=== PATIENT | male | born 1940 | race Caucasian/White ===

== ENCOUNTER 2022-01-03 10:14 | Emergency (ER) | payer MEDICARE, MEDICAID ==
[~2022-01-03] VITALS: Ht 182.9 cm; Wt 127.0 kg
[~2022-01-03 10:14] MED LIST: ACET325 PO; ASPI81CH PO; ASPI81EC MT; ATEN25 MT; ATEN25 PO; CEFP200 PO; IBUP600 PO; LEVSOD150 PO; LEVSOD50 MT; LISI5 MT; LISI5 PO; MOTRIN PO; OXYACE5T PO; OXYC5 PO; Synthroid/Lev0.15 MG PO
[2022-01-03 11:04] LABS: BASOPHILS ABSOLUTE AUTO 0.09 K/mm3 (0.00-0.23); BASOPHILS PERCENT AUTO 1 % (0-2); EOSINOPHILS ABSOLUTE AUTO 0.51 K/mm3 (0.00-0.68); EOSINOPHILS PERCENT AUTO 5 % (0-6); Hematocrit 45.1 % (37.0-53.0); Hemoglobin 15.7 g/dL (13.5-17.5); IMMATURE GRAN ABSOLUTE AUTO 0.04 K/mm3 (0.00-0.10); IMMATURE GRAN PERCENT AUTO 0 % (0-1); LYMPHOCYTES ABSOLUTE AUTO 1.97 K/mm3 (0.84-5.20); LYMPHOCYTES PERCENT AUTO 20 % (21-46); MONOCYTES ABSOLUTE AUTO 0.47 K/mm3 (0.16-1.47); MONOCYTES PERCENT AUTO 5 % (4-13); Mean Corpuscular HGB 33.1 pg (26.0-34.0); Mean Corpuscular HGB Conc 34.8 g/dL (31.5-36.5); Mean Corpuscular Volume 95 fL (80-100); Mean Platelet Volume 10.9 fL (9.1-12.4); NEUTROPHILS ABSOLUTE AUTO 6.71 K/mm3 (1.96-9.15); NEUTROPHILS PERCENT AUTO 69 % (41-73); Platelet Count 255 K/mm3 (150-400); RDW Coefficient Variation 15.3 % (11.7-14.2); RDW Standard Deviation 53.6 fL (35.1-46.3); Red Blood Cell Count 4.74 M/mm3 (4.30-5.90); White Blood Cell Count 9.79 K/mm3 (4.00-11.30)
[2022-01-03 11:26] LABS: Source, Urine Straight Cath
[2022-01-03 11:30] LABS: Blood, Urine Neg (Neg); Glucose Qualitative, Urine Neg (Neg); Ketones, Urine 2+ (Neg); Leukocyte Esterase, Urine Neg (Neg); Nitrite, Urine Neg (Neg); Protein, Urine 2+ (Neg); Specific Gravity, Urine 1.015 (1.003-1.022); Urobilinogen, Urine 3+ (Normal)
[2022-01-03 11:33] LABS: Alanine Aminotransfer (ALT/SGP 71 U/L (12-78); Albumin, Blood 3.5 g/dL (3.4-5.0); Albumin/Globulin Ratio 0.7 (0.8-1.8); Alk Phos 78 U/L (50-136); Anion Gap 8 mmol/L (6-16); Aspartate Aminotrans (AST/SGOT 121 U/L (12-37); Bilirubin, Total 0.9 mg/dL (0.1-1.0); Blood Urea Nitrogen 13 mg/dL (8-24); Bun/Creatinine Ratio 14.4 (12.0-20.0); CO2, Blood 30 mmol/L (21-32); Chloride, Blood 99 mmol/L (98-108); Globulin, Blood 4.8 g/dL (2.2-4.0); Glomerular Filtration Rate >60 (60-); Glucose, Blood 172 mg/dL (70-99); Magnesium, Blood 1.6 mg/dL (1.6-2.4); Potassium, Blood 4.3 mmol/L (3.5-5.5); Sodium, Blood 137 mmol/L (136-145); Total Protein, Blood 8.3 g/dL (6.4-8.2)
[2022-01-03] MEDS ORDERED: TAMS.4ER PO (11:35)
[2022-01-03 11:37] LABS: Appearance, Urine Hazy (Clear); Color, Urine Pale Yellow (P-Yellow)
[2022-01-03 11:38] LABS: Bacteria Few /hpf; Bilirubin, Urine 1+ (Neg); Mucus Heavy (0-Heavy); Red Blood Cells, Urine 0-2 /hpf (0-2); Squamous Epithelial Cells Rare /hpf (Few); White Blood Cells, Urine 0-2 /hpf (0-5)
[2022-01-03 11:39] LABS: Yeast/Fungi Urine Rare /hpf
[2022-01-03 12:09] LABS: Influenza A, PCR NEGATIVE (NEGATIVE); Influenza B, PCR NEGATIVE (NEGATIVE); Resp Syncytial Virus, PCR NEGATIVE (NEGATIVE); SARS-Cov-2 (COVID-19) PCR, MMC NEGATIVE (NEGATIVE)
== END 2022-01-03 17:27 | disposition home or self-care (01) ==
LOC: ER 10:14
PROVIDERS: Student in an Organized Health Care Education/Training Program
DX: M17.0 Bilateral primary osteoarthritis of knee (principal); W17.89XA Other fall from one level to another, initial encounter; Z88.8 Allergy status to other drugs, medicaments and biological substances; Z79.899 Other long term (current) drug therapy; Z79.82 Long term (current) use of aspirin; E03.9 Hypothyroidism, unspecified; E11.9 Type 2 diabetes mellitus without complications; I10 Essential (primary) hypertension
CPT/HCPCS: 0241U; 36415; 70450; 80053; 81001; 83735; 85025; 87086; 87210; 93005; 93010; 96365; 97116; 97162; 97166; 97530; 99285-25; J3475

== ENCOUNTER 2022-01-09 11:53 | Inpatient (IN) | payer OTHER ==
[~2022-01-09] VITALS: Ht 180.3 cm; Wt 109.5 kg
[~2022-01-09 11:53] MED LIST changes: +Acetaminophen650 M1 PO; +IBU600 M1 PO; -MOTRIN PO; +TAMS.4ER PO
[2022-01-09 12:53] LABS: BASOPHILS ABSOLUTE AUTO 0.08 K/mm3 (0.00-0.23); BASOPHILS PERCENT AUTO 1 % (0-2); EOSINOPHILS ABSOLUTE AUTO 0.76 K/mm3 (0.00-0.68); EOSINOPHILS PERCENT AUTO 7 % (0-6); Hematocrit 38.5 % (37.0-53.0); Hemoglobin 13.6 g/dL (13.5-17.5); IMMATURE GRAN ABSOLUTE AUTO 0.04 K/mm3 (0.00-0.10); IMMATURE GRAN PERCENT AUTO 0 % (0-1); LYMPHOCYTES ABSOLUTE AUTO 2.03 K/mm3 (0.84-5.20); LYMPHOCYTES PERCENT AUTO 20 % (21-46); MONOCYTES PERCENT AUTO 6 % (4-13); Mean Corpuscular HGB 33.2 pg (26.0-34.0); Mean Corpuscular HGB Conc 35.3 g/dL (31.5-36.5); Mean Corpuscular Volume 94 fL (80-100); Mean Platelet Volume 10.9 fL (9.1-12.4); NEUTROPHILS ABSOLUTE AUTO 6.83 K/mm3 (1.96-9.15); NEUTROPHILS PERCENT AUTO 66 % (41-73); Platelet Count 279 K/mm3 (150-400); RDW Coefficient Variation 14.6 % (11.7-14.2); RDW Standard Deviation 50.4 fL (35.1-46.3); White Blood Cell Count 10.34 K/mm3 (4.00-11.30)
[2022-01-09 13:59] LABS: Alanine Aminotransfer (ALT/SGP 132 U/L (12-78); Albumin, Blood 3.5 g/dL (3.4-5.0); Albumin/Globulin Ratio 0.7 (0.8-1.8); Alk Phos 98 U/L (50-136); Anion Gap 8 mmol/L (6-16); Aspartate Aminotrans (AST/SGOT 293 U/L (12-37); Bilirubin, Total 0.4 mg/dL (0.1-1.0); Blood Urea Nitrogen 20 mg/dL (8-24); Bun/Creatinine Ratio 23.4 (12.0-20.0); CO2, Blood 30 mmol/L (21-32); Calcium, Blood 9.9 mg/dL (8.5-10.1); Chloride, Blood 100 mmol/L (98-108); Creatinine, Blood 0.85 mg/dL (0.60-1.20); Globulin, Blood 4.7 g/dL (2.2-4.0); Glomerular Filtration Rate >60 (60-); Glucose, Blood 202 mg/dL (70-99); Potassium, Blood 3.4 mmol/L (3.5-5.5); Sodium, Blood 138 mmol/L (136-145); Total Protein, Blood 8.2 g/dL (6.4-8.2)
[2022-01-09 14:46] LABS: Source, Urine Straight Cath
[2022-01-09 14:59] LABS: Appearance, Urine Clear (Clear); Bilirubin, Urine Neg (Neg); Blood, Urine 4+ (Neg); Color, Urine Amber (P-Yellow); Glucose Qualitative, Urine Neg (Neg); Ketones, Urine Neg (Neg); Leukocyte Esterase, Urine Neg (Neg); Nitrite, Urine Neg (Neg); Protein, Urine 3+ (Neg); Urobilinogen, Urine 1+ (Normal)
[2022-01-09 15:29] LABS: U Amphetamine Screen Not Detected; U Barbituate Screen Not Detected; U Benzodiazapine Screen Not Detected; U Buprenorphine Screen Not Detected; U Cannabinoids Screen Not Detected; U Cocaine Screen Not Detected; U Methadone Screen Not Detected; U Methamphetamine Screen Not Detected; U Opiates Screen Not Detected; U Oxycodone Screen Not Detected; U Phencyclidine Screen Not Detected; U Propoxyphene Screen Not Detected
[2022-01-09 16:03] LABS: Red Blood Cells, Urine 0-2 /hpf (0-2)
[2022-01-09 16:04] LABS: Bacteria Few /hpf; Mucus Light (0-Heavy); Squamous Epithelial Cells Rare /hpf (Few)
--- NOTE | 2022-01-09 19:14 | NUR ---
REPORT RECEIVED FROM HARSHA PACKER FROM ER. PT ADMITTED TO ROOM 339. PT TX TO BED VIA SLIDE WITH 3 ASSIST. PT ALERT AT TIME OF ARRIVAL. ON 2 LPM VIA NC. VSWNL. PT REPORTED PAIN TO GROIN AREA WHEN COMPLETING FLOR CARE. PT A/O X 4 ON BEDREST AT THIS TIME. FLOR AREA IS VERY EXCORIATED LIKELY FROM INCONTINENCE AND INABILITY TO CLEAN SELF. CLEANSED SKIN AND APPLIED BARRIER CREAM. 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 BED IN LOW POSITION AND BED ALARM ON.
[2022-01-10 05:23] LABS: BASOPHILS ABSOLUTE AUTO 0.08 K/mm3 (0.00-0.23); BASOPHILS PERCENT AUTO 1 % (0-2); EOSINOPHILS ABSOLUTE AUTO 0.95 K/mm3 (0.00-0.68); EOSINOPHILS PERCENT AUTO 11 % (0-6); Hematocrit 37.5 % (37.0-53.0); Hemoglobin 12.7 g/dL (13.5-17.5); IMMATURE GRAN ABSOLUTE AUTO 0.08 K/mm3 (0.00-0.10); IMMATURE GRAN PERCENT AUTO 1 % (0-1); LYMPHOCYTES ABSOLUTE AUTO 1.95 K/mm3 (0.84-5.20); LYMPHOCYTES PERCENT AUTO 22 % (21-46); MONOCYTES ABSOLUTE AUTO 0.54 K/mm3 (0.16-1.47); MONOCYTES PERCENT AUTO 6 % (4-13); Mean Corpuscular HGB 33.2 pg (26.0-34.0); Mean Corpuscular HGB Conc 33.9 g/dL (31.5-36.5); Mean Corpuscular Volume 98 fL (80-100); Mean Platelet Volume 10.8 fL (9.1-12.4); NEUTROPHILS PERCENT AUTO 60 % (41-73); Platelet Count 238 K/mm3 (150-400); RDW Coefficient Variation 15.3 % (11.7-14.2); RDW Standard Deviation 55.1 fL (35.1-46.3); Red Blood Cell Count 3.82 M/mm3 (4.30-5.90)
[2022-01-10 05:55] LABS: Anion Gap 5 mmol/L (6-16); Blood Urea Nitrogen 16 mg/dL (8-24); Bun/Creatinine Ratio 19.2 (12.0-20.0); CO2, Blood 30 mmol/L (21-32); Calcium, Blood 8.7 mg/dL (8.5-10.1); Chloride, Blood 108 mmol/L (98-108); Creatinine, Blood 0.83 mg/dL (0.60-1.20); Glomerular Filtration Rate >60 (60-); Glucose, Blood 179 mg/dL (70-99); Potassium, Blood 3.3 mmol/L (3.5-5.5); Sodium, Blood 143 mmol/L (136-145)
--- NOTE | 2022-01-10 06:12 | NUR ---
SHIFT SUMMARY ADMITTED FOR HYPOTHYROIDISM. AOX4. VERY NOME & SLOW TO RESPOND TO QUESTIONS. HAS THICK ACCENT WITH GARBLED SPEECH @TIMES. DENIES PAIN, N/V OR DYSPNEA. REPORTS FEELING VERY "TIRED". VSS. SPO2 >90% ON 2L O2, DOESNT WEAR O2 @BASELINE. PETROLEUM PRODUCTION ENGINEER WEAK. PT SLUMPS OVER TO R SIDE WHEN SAT STRAIGHT UP & NEEDS TO BE POSITIONED c PILLOWS TO PREVENT FALLING OVER. SCATTERED BRUISING & PETECHIAE T/O BODY. GROIN & SCROTUM VERY ANGRY YEASTY RED, MICONAZOLE POWDER APPLIED. TURNED Q2H. NO BED BUGS NOTICED DURING MY ASSESSMENT. BLE HAVE TRACE EDEMA, SCALY, RED, DRY. CONTINENT OF URINE. USES CALL LIGHT APPROPRIATELY. WILL MONITOR.
--- NOTE | 2022-01-10 19:12 | NUR ---
SHIFT SUMMARY PT AXO X4 THOUGH EXTREMELY [place]. PLEASANT AND COOPERATIVE WITH CARE. PATIENT CAN HEAR MEN'S LOWER TONES VOICES BETTER THAN HIGH PITCHED VOICES. CONTINUES TO HAVE SOME GARBLED SPEECH. 98% ON 2L VIA NC. PER VITALS CART AT 1535 PT'S HR WAS RANGING FROM 30'S TO 160'S AND BP WAS 92/58/ DR BALLESTEROS NOTIFIED AT 1540 AND NEW ORDERS OF TELE AND NS BOLUS OF 1L ORDERED. PT RUNNING A-FIB IN 60'S, DR BALLESTEROS NOTIFIED AT 1647, NO NEW ORDERS AT THAT TIME. AT 1743, WHEN PATIENT WAS SLEEPING PT HR DIPPED INTO LOW 30'S BUT THEN WOULD CLIMB BACK UP TO 80'S PER ALTA DAS, MECHANICAL TECHNICIAN. PT UP TO CHAIR FOR DINNER VIA STEADY SIT TO STAND LIFT AND IS THERE AT THIS TIME, CALL LIGHT WITHIN REACH. REPORT GIVEN TO MEDICAL ILLUSTRATOR NURSE WHO ASSUMES CARE AT THIS TIME. IV PATENT AND INFUSING PER EMAR.
--- NOTE | 2022-01-11 02:08 | NUR ---
NURSE NOTE: MAYKEL MD UPDATED PTS HEART RHYTHM CONVERTED FROM AFIB TO SINUS RHYTHM APPROXIMATELY 0130 PER STRIPPING CUTTER AND WINDER. CURRENT HR 66 BPM OCCASSIONALLY DROPPING DOWN TO 35 BPM NON SUSTAINING, NON SYMPTOMATIC WHILE SLEEPING. NO INTERVENTIONS AT THIS TIME. WILL CONTINUE TO MONITOR AND INFORM MD IF HR SUSTAINS 30'S BPM OR IF PATIENT BECOMES SYMPTOMATIC.
[2022-01-11 07:22] LABS: Anion Gap 3 mmol/L (6-16); Blood Urea Nitrogen 16 mg/dL (8-24); CO2, Blood 32 mmol/L (21-32); Chloride, Blood 106 mmol/L (98-108); Creatinine, Blood 0.84 mg/dL (0.60-1.20); Glomerular Filtration Rate >60 (60-); Glucose, Blood 211 mg/dL (70-99); Potassium, Blood 3.5 mmol/L (3.5-5.5); Sodium, Blood 141 mmol/L (136-145)
--- NOTE | 2022-01-11 08:03 | NUR ---
SHIFT SUMMARY: A/OX3 DISORIENTED TO TIME, DIFFICULTY HEARING. EXCORIATION IN GROIN AND BUTTOCKS REGION- OINTMENT AND POWDER APPLIED (EMAR REVIEW). CONTINUED CONTACT ISOLATION DUE TO SUSPECTED BED BUGS, NO BITES NOTED ON SKIN AND NO BED BUGS SEEN THIS SHIFT. PATIENT ABLE TO REST WELL THROUGHOUT THE NIGHT. HEART RHYTHM CONVERTED FROM AFIB TO SINUS AT APPROXIMATELY 0130, OCCASSIONALLY DROPPING DOWN TO 30'S BPM NON SUSTAINED AND NON SYMPTOMATIC -MD NOTIFIED. BED IN LOW POSITION, CALL NEWTON IN REACH, NO ATTEMPTS TO GET OUT OF BED.
--- NOTE | 2022-01-11 18:48 | NUR ---
SHIFT SUMMARY PT A&O X4 AND IN PLEASENT MOOD T/O SHIFT. PT VERY [place]. HEPARIN DC'ED, RESTARTED XARELTO THIS SHIFT. VSS. CALL LIGHT W/IN REACH. PT C/O CONSTIPATION, MEDICATED PER EMAR. TOLERATING PO INTAKE WELL. TELE IN PLACE, SR. WORKED W/ OT AND PT THIS SHIFT.
--- NOTE | 2022-01-12 03:36 | NUR ---
SHIFT SUMMARY: PT A/OX3 DISORIENTED TO TIME, DIFFICUTLY HEARING. PT REMAINS CONTINENT THROUGHOUT SHIFT, REPOSITIONS SELF IN BED- OCCASSIONAL ASSISTANCE TO BOOST OR ADJUST PILLOWS. NO COMPLAINTS OF PAIN DURING THIS SHIFT. SKIN CARE- MOISTURIZER APPLIED TO SKIN DUE TO EXCORIATION & DRY/PEELING APPEARANCE. PT HAD 2 SMALL BOWEL MOVEMENTS THIS SHIFT. CONTINUED INCREASED WEAKNESS TO GET OUT OF BED AT THIS TIME, USED BEDPAN AND URINAL. BED ALARM ACTIVATED, BED IN LOW POSITION, CALL NEWTON AND BELONGINGS IN REACH.
[2022-01-12] MEDS ORDERED: HYDROCHLOROTH12.5 MG PO (05:02)
[2022-01-12] MEDS ORDERED: EUTHYROX175 MCG PO (05:03)
--- NOTE | 2022-01-12 16:33 | NUR ---
SHIFT SUMMARY PT A&O X4 AND IN PLEASENT MOOD T/O SHIFT. PT VERY [place]. TOLERATING PO INTAKE WELL. ELEVATED BLOOD GLUCOSE MEDICATED PER EMAR. PT UP TO CHAIR FOR LUNCH. WORKED W/ PHYSICAL THERAPY THIS SHIFT. ABLE TO STAND, BUT DIFFICULTY PIVOTING. VSS. CALL LIGHT W/IN REACH. TELE IN PLACE SR 70'S. NAPPED IN BED T/O MOST OF SHIFT. AWAITING PLACEMENT @ THIS TIME.
--- NOTE | 2022-01-13 01:35 | NUR ---
NURSE NOTE: 0125- MAYKEL NOTIFIED PT WENT INTO VENTRICULAR BIGEMINY FOR 1-2 MINUTES. OCCASSIONALLY GOING IN AND OUT OF BIGEMINY PER EMPLOYMENT COORDINATOR. PT RESTING, NONSYMPTOMATIC. MD REQUESTED TO BE UPDATED IF MORNING LABS SHOWS LOW POTASSIUM. WILL CONTINUE TO MONITOR.
--- NOTE | 2022-01-13 02:36 | NUR ---
SHIFT SUMMARY: A/OX3- DISORIENTED TO TIME. PT IS VERY HARD OF HEARING. OCCASIONALLY STRESS INCONTINENT, TONIGHT HAS BEEN ABLE TO CALL APPROPRIATELY WHEN NEEDING TO URINATE. PAIN CONTROLLED. 2L O2 APPLIED AT REST DUE TO BOARDERLINE DESATURATION O2 SAT 90. BED ALARM ACTIVATED, BED IN LOW POSITION, CALL NEWTON AND BELONGINGS IN REACH.
[2022-01-13 06:09] LABS: Magnesium, Blood 1.5 mg/dL (1.6-2.4)
[2022-01-13 06:10] LABS: Anion Gap 4 mmol/L (6-16); Blood Urea Nitrogen 14 mg/dL (8-24); Bun/Creatinine Ratio 16.8 (12.0-20.0); CO2, Blood 35 mmol/L (21-32); Calcium, Blood 8.6 mg/dL (8.5-10.1); Chloride, Blood 97 mmol/L (98-108); Creatinine, Blood 0.84 mg/dL (0.60-1.20); Glomerular Filtration Rate >60 (60-); Glucose, Blood 218 mg/dL (70-99); Potassium, Blood 3.7 mmol/L (3.5-5.5); Sodium, Blood 136 mmol/L (136-145)
--- NOTE | 2022-01-13 19:54 | NUR ---
SHIFT SUMMARY PT A&O AND IN PLEASENT MOOD T/O SHIFT. C/O URINE FREQUENCY. MULTIPLE INCONT. VOIDS. SKIN STILL APPEARS RED IN GROIN AREA. EXTREMLY IONE. TOLERATING PO INTAKE WELL. BLOOD GLUCOSE MEDICATED PER EMAR. RESTED IN BED COMFORTABLY T/O SHIFT. VSS. CALL LIGHT W/IN REACH. AWAITING PLACEMENT @ THIS TIME.
--- NOTE | 2022-01-14 17:55 | NUR ---
SHIFT SUMMARY PT A&O X4 AND IN PLEASENT MOOD T/O SHIFT. PT VERY [place]. PT C/O CONSTIPATION-MEDICATED PER EMAR. WORKED W/ PT AND OT THIS SHIFT. PT AWAITING PLACEMENT @ THIS TIME. VSS. CALL LIGHT W/IN REACH.
--- NOTE | 2022-01-14 18:14 | NUR ---
Pt is a 81 y.o. man. He's pleasant and cooperative. He reports having extreme weakness and hypothyroidism last week in ED, but was sent home, where he was found out of his w/c. He remains weak and continues to need assistance with all ADL's. Palliative Car will remain involved as needed.
--- NOTE | 2022-01-15 06:10 | NUR ---
SHIFT SUMMARY: NO SIGNIFICANT EVENTS OVERNIGHT. PATIENT SLEPT WELL. NO COMPLAINTS OF PAIN. COMPLIANT WITH MEDICATIONS, ASSESSMENT, AND PLAN OF CARE. REDNESS NOTED TO GROIN/PANNUS TREATED PER EMAR. BLE DRY FLACKING SKIN. WCTM.
--- NOTE | 2022-01-15 16:18 | NUR ---
SHIFT SUMMARY PATIENT IS ALERT AND ORIENTED 2-3. PATIENT IS HARD OF HEARING. PATIENT COMPLAINED OF A HEADACHE ONCE THIS SHIFT, MEDICATED PER EMAR. PATIENT HAS NOT COMPLAINED OF ANY OTHER PAIN, NAUSEA, VOMITTING OR SOB THIS SHIFT. PATIENT USES A SIT TO STAND LIFT FOR TRANSFERS. NO ACUTE ISSUES THIS SHIFT. VITAL SIGNS REVIEWED. WILL MONITOR UNTIL SHIFT CHANGE.
--- NOTE | 2022-01-16 06:14 | NUR ---
SHIFT SUMMARY: NO SIGNIFICANT EVENTS ON NOC. PATIENT COMPLIANT WITH CARE. COMPLAINTS OF HEADACHE TREATED PER EMAR. PATIENT REMAINS WITH REDDENED GROIN, TREATED PER EMAR, AND SCROTAL EDEMA. COMPLAINT OF TENDERNESS TO RIGHT SIDE OF HEAD, UPON ASSESSMENT QUATER SIZE ERRYHTMEA NOTED WITH WHITE PUSTULE. SCALING BLE. WCTM.
--- NOTE | 2022-01-16 16:22 | NUR ---
SHIFT SUMMARY PATIENT IS ALERT AND ORIENTED X2-3. PATIENT HAS BEEN PLEASENT AND COOPERATIVE WITH CARE. PATIENT HAS HAD NO COMPLAINTS OF PAIN, NAUSEA, SOB OR VOMITTING THIS SHIFT. PATIENT CONTINUES TO HAVE REDDENED AND EDEMOUS GROIN, MEDICATED PER EMAR. NO ACUTE EVENTS THIS SHIFT. VITAL SIGNS REVIEWED. WILL CONTINUE TO MONITOR.
--- NOTE | 2022-01-17 05:51 | NUR ---
SHIFT SUMMARY: NO SIGNIFNCANT EVETNS ON NOC. COMPLIANT WITH CARE. NO BED BUGS LOCATED DURING ASSESSMENT. WCTM.
[2022-01-17 11:19] LABS: Influenza A, PCR NEGATIVE (NEGATIVE); Influenza B, PCR NEGATIVE (NEGATIVE); Resp Syncytial Virus, PCR NEGATIVE (NEGATIVE); SARS-Cov-2 (COVID-19) PCR, MMC NEGATIVE (NEGATIVE)
[2022-01-17] MEDS ORDERED: INSULIN GL100 UNIT/2 SC (11:43)
[2022-01-17] MEDS ORDERED: HUMALOG KW100 UNIT/1 SC (11:50)
[2022-01-17] MEDS ORDERED: LISI5 PO (11:51)
[2022-01-17] MEDS ORDERED: ANTIFUNGAL POWD71 GM TOP (11:54)
[2022-01-17] MEDS ORDERED: MIRALAX17 GM PO (11:55)
[2022-01-17] MEDS ORDERED: XARELTO20 MG PO (11:56)
--- NOTE | 2022-01-17 14:35 | NUR ---
DISCHARGE PATIENT TRANSPORTED VIA WHEELCHAIR BY AMBULANCE TO [facility]. PACKET SENT WITH PATIENT. [facility] BELONGINGS SENT WITH PATIENT. IV REMOVED WITHOUT DIFFICULTY. [facility] TO SCHEDULE FOLLOW UP APPOINTMENTS. REPORT CALLED AND GIVEN TO HERI.
== END 2022-01-17 14:12 | DRG 643 ==
LOC: ER 11:53 → MEDS 11:54
PROVIDERS: Family Medicine; Internal Medicine; Nurse Practitioner Acute Care; ADMIT Hospitalist
DX: E03.9 Hypothyroidism, unspecified (principal); G92.9 Unspecified toxic encephalopathy; J98.11 Atelectasis; Z68.41 Body mass index [BMI] 40.0-44.9, adult; Z20.822 Contact with and (suspected) exposure to COVID-19; I48.0 Paroxysmal atrial fibrillation; R53.1 Weakness; E86.0 Dehydration; E87.6 Hypokalemia; E83.42 Hypomagnesemia; G47.33 Obstructive sleep apnea (adult) (pediatric); R74.01 Elevation of levels of liver transaminase levels; R00.1 Bradycardia, unspecified; E66.01 Morbid (severe) obesity due to excess calories; L30.4 Erythema intertrigo; E11.9 Type 2 diabetes mellitus without complications; N40.0 Benign prostatic hyperplasia without lower urinary tract symptoms; I10 Essential (primary) hypertension; M54.9 Dorsalgia, unspecified; G89.29 Other chronic pain; Z91.14 Patient's other noncompliance with medication regimen; Z79.82 Long term (current) use of aspirin; Z79.899 Other long term (current) drug therapy; Z91.041 Radiographic dye allergy status
CPT/HCPCS: 0241U; 36415; 71045; 76705; 80048; 80053; 81001; 82140; 82947; 83605; 83735; 84145; 84439; 84443; 85025; 93005; 93010; 97110; 97162; 97167; 97530; 97535; 99285-25; A9270; G0480; J1650; J1815; J3475; J7030; J7050

== ENCOUNTER → 2022-02-11 | Outpatient (CLI) | payer MEDICARE, OTHER ==
[~2022-02-11] MED LIST changes: +ANTIFUNGAL POWD71 GM TOP; +EUTHYROX175 MCG PO; +HUMALOG KW100 UNIT/1 SC; +HYDROCHLOROTH12.5 MG PO; +INSULIN GL100 UNIT/2 SC; +MIRALAX17 GM PO; +XARELTO20 MG PO
[2022-02-11 19:49] LABS: Hematocrit 34.4 % (37.0-53.0); Hemoglobin 11.1 g/dL (13.5-17.5); Mean Corpuscular HGB 32.5 pg (26.0-34.0); Mean Corpuscular HGB Conc 32.3 g/dL (31.5-36.5); Mean Corpuscular Volume 101 fL (80-100); Mean Platelet Volume 10.5 fL (9.1-12.4); Platelet Count 406 K/mm3 (150-400); RDW Coefficient Variation 14.7 % (11.7-14.2); RDW Standard Deviation 55.3 fL (35.1-46.3); Red Blood Cell Count 3.42 M/mm3 (4.30-5.90); White Blood Cell Count 11.61 K/mm3 (4.00-11.30)
[2022-02-11 21:26] LABS: Appearance, Urine Hazy (Clear); Bilirubin, Urine Neg (Neg); Blood, Urine 1+ (Neg); Color, Urine Yellow (P-Yellow); Glucose Qualitative, Urine Neg (Neg); Ketones, Urine Neg (Neg); Leukocyte Esterase, Urine 3+ (Neg); Nitrite, Urine Pos (Neg); Protein, Urine 2+ (Neg); Specific Gravity, Urine 1.015 (1.003-1.022); Urobilinogen, Urine NORM (Normal)
[2022-02-11 21:48] LABS: Bacteria Many /hpf; Squamous Epithelial Cells Few /hpf (Few); White Blood Cells, Urine 50-100 /hpf (0-5)
== END | disposition home or self-care (01) ==
LOC: EDSTATUS 13:12 → LAB UVN 19:31
PROVIDERS: Internal Medicine
DX: N39.0 Urinary tract infection, site not specified (principal); G93.41 Metabolic encephalopathy
CPT/HCPCS: 81001; 85027; 87077; 87086; 87186

== ENCOUNTER → 2022-03-11 | Outpatient (CLI) ==
[2022-03-11 10:19] LABS: International Normalized Ratio 1.09; Prothrombin Time Results 11.4 Sec (9.7-11.5)
== END | disposition home or self-care (01) ==
LOC: LAB UVN 09:51 → EDSTATUS 15:02
PROVIDERS: Internal Medicine
DX: I48.20 Chronic atrial fibrillation, unspecified (principal)
CPT/HCPCS: 85610

== ENCOUNTER → 2022-03-19 | Outpatient (CLI) | payer MEDICARE, OTHER | END | disposition home or self-care (01) | LOC: LAB UVN 06:22 | DX: Z79.01 Long term (current) use of anticoagulants (principal); Z51.81 Encounter for therapeutic drug level monitoring; I48.20 Chronic atrial fibrillation, unspecified ==

== ENCOUNTER → 2022-03-25 | Outpatient (CLI) | payer MEDICARE, OTHER | END | disposition home or self-care (01) | LOC: LAB UVN 05:33 | DX: I48.20 Chronic atrial fibrillation, unspecified (principal) ==

== ENCOUNTER → 2022-04-01 | Outpatient (CLI) | payer MEDICARE, OTHER | END | disposition home or self-care (01) | LOC: LAB UVN 15:31 | DX: I48.20 Chronic atrial fibrillation, unspecified (principal) ==

== ENCOUNTER → 2022-05-20 | Outpatient (CLI) | payer MEDICARE, OTHER ==
[2022-05-20 08:05] LABS: International Normalized Ratio 2.54; Prothrombin Time Results 25.1 Sec (9.7-11.5)
== END ==
LOC: LAB UVN 07:45 → EDSTATUS 10:10
PROVIDERS: Internal Medicine
DX: Z51.81 Encounter for therapeutic drug level monitoring (principal); I48.20 Chronic atrial fibrillation, unspecified
CPT/HCPCS: 85610

== ENCOUNTER → 2022-09-30 | Outpatient (CLI) | payer MEDICARE, OTHER ==
[2022-09-30 11:12] LABS: Prothrombin Time Results 29.3 Sec (9.7-11.5)
== END | disposition home or self-care (01) ==
LOC: LAB UVN 09:50 → EDSTATUS 10:01
PROVIDERS: Internal Medicine
DX: I48.20 Chronic atrial fibrillation, unspecified (principal)
CPT/HCPCS: 85610

== ENCOUNTER → 2022-10-23 | Outpatient (CLI) | payer MEDICARE, OTHER ==
[2022-10-23 11:20] LABS: Prothrombin Time Results 20.1 Sec (9.7-11.5)
== END ==
LOC: EDSTATUS 10:11 → LAB UVN 10:43
PROVIDERS: Internal Medicine
DX: I48.20 Chronic atrial fibrillation, unspecified (principal)
CPT/HCPCS: 85610

== ENCOUNTER → 2022-11-28 | Outpatient (CLI) | payer MEDICARE, OTHER ==
[2022-11-28 15:54] LABS: International Normalized Ratio 2.09; Prothrombin Time Results 20.9 Sec (9.7-11.5)
== END | disposition home or self-care (01) ==
LOC: EDSTATUS 09:39 → LAB UVN 13:20
PROVIDERS: Internal Medicine
DX: I48.20 Chronic atrial fibrillation, unspecified (principal)
CPT/HCPCS: 85610

== ENCOUNTER → 2022-12-09 | Outpatient (CLI) | payer MEDICARE, OTHER ==
[2022-12-09 08:52] LABS: International Normalized Ratio 3.01; Prothrombin Time Results 29.4 Sec (9.7-11.5)
== END | disposition home or self-care (01) ==
LOC: LAB UVN 06:30 → EDSTATUS 15:47
PROVIDERS: Internal Medicine
DX: I48.20 Chronic atrial fibrillation, unspecified (principal)
CPT/HCPCS: 85610

== ENCOUNTER → 2022-12-16 | Outpatient (CLI) | payer MEDICARE, OTHER ==
[2022-12-16 09:18] LABS: International Normalized Ratio 3.06; Prothrombin Time Results 29.9 Sec (9.7-11.5)
== END | disposition home or self-care (01) ==
LOC: LAB UVN 07:40 → EDSTATUS 15:48
PROVIDERS: Family Medicine
DX: I48.20 Chronic atrial fibrillation, unspecified (principal)
CPT/HCPCS: 85610

== ENCOUNTER → 2022-12-23 | Outpatient (CLI) | payer MEDICARE, OTHER ==
[2022-12-23 09:53] LABS: International Normalized Ratio 1.98; Prothrombin Time Results 19.9 Sec (9.7-11.5)
== END | disposition home or self-care (01) ==
LOC: LAB 09:21 → LAB UVN 09:21 → EDSTATUS 15:50
PROVIDERS: Family Medicine
DX: I48.20 Chronic atrial fibrillation, unspecified (principal)
CPT/HCPCS: 85610

== ENCOUNTER → 2022-12-30 | Outpatient (CLI) | payer MEDICARE, OTHER ==
[2022-12-30 09:18] LABS: International Normalized Ratio 1.96; Prothrombin Time Results 19.7 Sec (9.7-11.5)
== END | disposition home or self-care (01) ==
LOC: LAB UVN 07:45 → EDSTATUS 15:51
PROVIDERS: Internal Medicine
DX: I48.20 Chronic atrial fibrillation, unspecified (principal)
CPT/HCPCS: 85610